=== PATIENT | female | born 1950 | race Caucasian/White ===

== ENCOUNTER 2017-03-26 21:23 | Inpatient (IN) | payer BC, OTHER ==
[~2017-03-26] VITALS: Ht 162.6 cm; Wt 54.4 kg
--- NOTE | 2017-03-26 21:48 | NUR ---
Pt BIB [facility], reports pt was behaving oddly, going into other people's rooms at [id number], and pt had diarrhea; IV 20g right hand. Pt appears extremely anxious, c/o anxiety but no other complaints. Pt A&Ox2, about baseline per paramedics. Pt denies CP, SOB, dizziness, n/v, no other complaints.
[2017-03-26] MEDS ORDERED: IV NORMAL SALINE 1000 ML BAG IV ONE (22:00)
[2017-03-26] MEDS ORDERED: LORAZEPAM 2 MG/1 ML VIAL IV ONE (22:00)
[2017-03-26] MEDS ORDERED: ACETAMINOPHEN 650 MG SUPP.RECT RC ONE (22:00)
[2017-03-26] MEDS ORDERED: ONDANSETRON 4 MG/2 ML VIAL IV ONE (22:00)
[2017-03-26] MEDS ORDERED: LORAZEPAM 2 MG/1 ML VIAL ONE (22:11)
[2017-03-26] MEDS ORDERED: ONDANSETRON 4 MG/2 ML VIAL ONE (22:29)
[2017-03-26 22:56] LABS: BASOPHILS % (AUTO) 0.1 % (0.0-2.0); EOSINOPHILS # (AUTO) 0.2 K/uL (0.0-0.7); HEMATOCRIT 30.4 % (31.2-41.9); LYMPHOCYTES # (AUTO) 0.9 K/uL (20.0-40.0); LYMPHOCYTES % (AUTO) 5.9 % (20.5-51.5); MEAN CORPUSCULAR HEMOGLOBIN 26.4 uug (24.7-32.8); MEAN CORPUSCULAR HGB CONC 33 g/dL (32.3-35.6); MEAN CORPUSCULAR VOLUME 80.5 fL (75.5-95.3); MONOCYTES # (AUTO) 1.1 K/uL (2.0-10.0); MONOCYTES % (AUTO) 7.5 % (0.0-11.0); NEUTROPHILS # (AUTO) 12.8 K/uL (1.8-8.9); NEUTROPHILS % (AUTO) 85.5 % (38.5-71.5); PLATELET COUNT (AUTO) 243 K/uL (179-408); RED BLOOD CELL COUNT(AUTO) 3.78 MIL/uL (3.63-4.92)
[2017-03-26 22:59] LABS: CREATININE 1.4 mg/dL (0.6-1.3); POTASSIUM 3.1 mmol/L (3.5-5.1)
--- NOTE | 2017-03-26 23:03 | NUR ---
Pt back from CT
[2017-03-26 23:12] LABS: BILIRUBIN,DIRECT 0.2 mg/dL (0.0-0.2); BILIRUBIN,TOTAL 0.6 mg/dL (0.2-1.0); TOTAL PROTEIN, SERUM 7.1 g/dL (6.4-8.2)
[2017-03-26] MEDS ORDERED: ACETAMINOPHEN 325 MG TABLET ONE (23:56)
[2017-03-27] MEDS ORDERED: LORAZEPAM 2 MG/1 ML VIAL IV ONE (01:15)
[2017-03-27] MEDS ORDERED: LORAZEPAM 2 MG/1 ML VIAL ONE (01:16)
[2017-03-27 01:27] LABS: *BILIRUBIN,URIN NEGATIVE (NEGATIVE); *BLOOD, URINE 2+ (NEGATIVE); *CLARITY,URINE CLOUDY (CLEAR); *COLOR,URINE YELLOW (YELLOW); *KETONES,URINE NEGATIVE (NEGATIVE); *PROTEIN,URINE 2+ (NEGATIVE); *UROBILINOGEN,URINE 0.2 E.U./dl (NORMAL); LEUKOCYTE ESTERASE ,URINE 2+ (NEGATIVE); NITRITE, URINE POSITIVE (NEGATIVE); UGLUCOSE NEGATIVE (NEGATIVE)
[2017-03-27 01:38] LABS: BACTERIA,URINE MANY /HPF (NONE SEEN); RBC,URINE 20-50 /HPF (0-3); SQUAMOUS EPITHELIAL CELL,UR FEW /HPF (NONE SEEN); WBC,URINE TNTC /HPF (0-3)
[2017-03-27] MEDS ORDERED: CEFTRIAXONE 1 G in IV DEXTROSE 5% 50 ML IV ONE (02:00)
[2017-03-27] MEDS ORDERED: LEVOFLOXACIN 750 MG/D5W 150 ML PIGGYBACK IV ONE (02:00)
[2017-03-27] MEDS ORDERED: MAGNESIUM SULFATE/D5W 100 ML IV SCH (02:00)
[2017-03-27] MEDS ORDERED: POTASSIUM BICARBONATE/CIT AC 25 MEQ TABLET.EFF PO ONE (02:00)
[2017-03-27] MEDS ORDERED: CEFTRIAXONE 1 G VIAL ONE (02:31)
[2017-03-27] MEDS ORDERED: MAGNESIUM SULFATE/D5W 100 ML ONE (02:33)
[2017-03-27] MEDS ORDERED: POTASSIUM BICARBONATE/CIT AC 25 MEQ TABLET.EFF ONE (02:34)
[2017-03-27] MEDS ORDERED: CEFTRIAXONE 1 G in IV DEXTROSE 5% 50 ML IV SCH ×2 (02:45→09:00)
[2017-03-27] MEDS ORDERED: ONDANSETRON 4 MG/2 ML VIAL IV PRN (02:45)
[2017-03-27] MEDS ORDERED: Z GUARD REMEDY PASTE 57 GM TUBE TOP PRN (02:45)
[2017-03-27] MEDS ORDERED: MAGNESIUM HYDROXIDE 30 ML LIQUID UDC PO PRN (02:45)
[2017-03-27] MEDS ORDERED: ENOXAPARIN SODIUM 40 MG/0.4 ML DISP.SYRIN SQ SCH ×3 (02:45→21:00)
--- NOTE | 2017-03-27 03:45 | NUR ---
Called report to Tiffany.
--- NOTE | 2017-03-27 04:00 | NUR ---
Received patient from ER nurse ROXY EscalanteRN. PT lying in bed awake and alert oriented to name only, easliy becomes upset and start to cry when trying to remember day, year, med or any medical history. Stated no pain when asked but takes norco for arthritis, pt discribed it as bubbles in my knees. Oriented patient x 4 and to room and call light, purpose and plan of care. Patient nod head for understanding but continue to cry. Vitals stable, no acute distress noted. Placed on tele, monitor reading 100% paced. Continue with POC.
[2017-03-27] MEDS ORDERED: LEVOFLOXACIN 750MG/D5W 150 ML IV ONE (04:04)
[2017-03-27 04:58] VITALS: BP 122/37
[2017-03-27] MEDS: IV NS 1000 ML 1,000 ML IV PRN ×2 (05:02→21:39)
[2017-03-27] MEDS ORDERED: ENOXAPARIN SODIUM 40 MG/0.4 ML DISP.SYRIN SQ ONE (05:34)
[2017-03-27] MEDS ORDERED: HYDROCODONE/APAP 5-325MG TABLET ONE (05:35)
[2017-03-27 08:00] VITALS: BP 109/32
[2017-03-27] MEDS: HYDROCODONE/APAP 5-325MG TABLET PO PRN ×2 (09:58→16:51)
[2017-03-27 11:56] VITALS: BP 99/50
[2017-03-27 16:07] VITALS: BP 100/49
--- NOTE | 2017-03-27 18:22 | NUR ---
PT OBSERVED RESTING IN BED WITH NO RESPIRATORY DISTRESS, C/O PAIN ON LEG, PT GIVEN A NORCO FOR PAIN, MEDICATION IS EFFECTIVE. PT CLAUDE OFTEN BUT IS TAUGHT TO USE DISTRACTION TO HELP WITH ANXIETY SUCH WATCHING TV. ANXIETY /10 AFTER TEACHING ANXIETY 04/13. PT IS STABLE.
[2017-03-27 20:51] VITALS: BP 104/35
[2017-03-27] MEDS: CEFTRIAXONE 1 G in IV DEXTROSE 5% 50 ML IV SCH (21:39)
[2017-03-27 22:00] VITALS: BP 104/35
--- NOTE | 2017-03-27 22:00 | NUR ---
NURSING CLINICAL NOTE: pt has the IV site on the Right arm infiltrated and swollen. IV access removed,applied heating pads and kept the arm elevated, .Josef is notified. will continue to monitor for any changes.
[2017-03-28] MEDS: HYDROCODONE/APAP 5-325MG TABLET PO PRN (03:48)
[2017-03-28 04:00] VITALS: BP 105/46
[2017-03-28 05:00] VITALS: BP 105/46
[2017-03-28 06:49] LABS: BASOPHILS % (AUTO) 0.1 % (0.0-2.0); EOSINOPHILS # (AUTO) 0.2 K/uL (0.0-0.7); EOSINOPHILS % (AUTO) 1.6 % (0.0-7.0); HEMOGLOBIN 9.3 g/dL (10.9-14.3); LYMPHOCYTES # (AUTO) 2.7 K/uL (20.0-40.0); LYMPHOCYTES % (AUTO) 21.1 % (20.5-51.5); MEAN CORPUSCULAR HEMOGLOBIN 26.3 uug (24.7-32.8); MEAN CORPUSCULAR HGB CONC 33 g/dL (32.3-35.6); MEAN CORPUSCULAR VOLUME 79.4 fL (75.5-95.3); MONOCYTES # (AUTO) 1.2 K/uL (2.0-10.0); MONOCYTES % (AUTO) 9.3 % (0.0-11.0); NEUTROPHILS # (AUTO) 8.7 K/uL (1.8-8.9); NEUTROPHILS % (AUTO) 67.9 % (38.5-71.5); PLATELET COUNT (AUTO) 225 K/uL (179-408); RED BLOOD CELL COUNT(AUTO) 3.53 MIL/uL (3.63-4.92); WHITE BLOOD COUNT (AUTO) 12.8 K/uL (3.8-11.8)
[2017-03-28 07:23] LABS: THYROID STIMULATING HORMONE 0.653 mIU/mL (0.358-3.740)
--- NOTE | 2017-03-28 08:00 | NUR ---
RECEIVED PATIENT IN BED AWAKE ALERT BUT IS SOMEWHAT FORGETFUL AND ANXIOUS REALITY ORIENTATION IS IN PROGRESS AT THIS TIME.REQUIRES MAX ASSIST FOR ALL ADL IVF IN PROGRESS ORDERED PATIENT IS CURRENTLY ON CONTACT ISOLATION PENDING THE RESULT OF C DIFF PER THE NOC RN PATIENT HAS HAD MANY EPISODES OF [facility] IN EXCESS OD 4 AND THAT [facility] ALREADY SENT THE SPECIMEN BUT WHEN I CALLED THE LAB TO VERIFY THE RESULT AND THEY STATED THAT THEY DID NOT RECEIVED ANY SPECIMEN YET.WILL ATTEMPT TO COLLECT.
[2017-03-28 09:05] LABS: CREATININE 0.9 mg/dL (0.6-1.3); MAGNESIUM 1.4 mg/dL (1.8-2.4); PHOSPHOROUS 2.4 mg/dL (2.5-4.9); POTASSIUM 3.2 mmol/L (3.5-5.1)
[2017-03-28] MEDS ORDERED: MAGNESIUM OXIDE 400 MG TABLET PO ONE (11:00)
[2017-03-28 11:27] VITALS: BP 133/52
[2017-03-28] MEDS: IV NS 1000 ML 1,000 ML IV PRN (11:31)
[2017-03-28 11:36] LABS: IRON, SERUM 8 ug/dL (50-175)
[2017-03-28] MEDS: POTASSIUM PHOSPHATE MM 7.5 MMOL in IV DEXTROSE 5% 100 ML IV SCH ×2 (12:13→15:22)
[2017-03-28] MEDS ORDERED: LORAZEPAM 2 MG/1 ML VIAL IV ONE (14:15)
--- NOTE | 2017-03-28 14:38 | NUR ---
SEEN AND EXAMINED BY DR CHACKO WITH ORDER FOR ENDOSCOPY I TOMORROW PATIENT AWARE AND WILL OBTAIN CONSCENT.
[2017-03-28 15:30] VITALS: BP 134/55
--- NOTE | 2017-03-28 17:48 | NUR ---
PATIENT IS UNABLE TO SIGN HER CONSCENT SHE IS CONFUSED AND UNABLE TO UNDERSTAND THAT SHE WILL HAVE ENDOSCOPY EVEN THOUGH DR CHACKO SPOKE WITH HER TOLD ME THAT SHE LEAVES IN A RESIDENTIAL AND HAS NO FAMILY AVAILABLE.DR BROWN NOTIFIED AND HE STATED THAT HIM AND DR CHACKO MAY HAVE IN SIGN IN THE ABSENCE OF OTHER RELATIVES.
[2017-03-28 19:34] VITALS: BP 133/52
[2017-03-28] MEDS: CEFTRIAXONE 1 G in IV DEXTROSE 5% 50 ML IV SCH (20:49)
[2017-03-28] MEDS: LORAZEPAM 1 MG TABLET PO SCH (20:49)
[2017-03-28] MEDS: Z GUARD REMEDY PASTE 57 GM TUBE TOP SCH (20:50)
[2017-03-28 21:50] VITALS: BP 133/52
[2017-03-29] MEDS: ACETAMINOPHEN 325 MG TABLET PO PRN (02:52)
--- NOTE | 2017-03-29 03:13 | NUR ---
NURSING CLINICAL NOTE: Pt has a temp of 100.1, tylenol is given and cold measures are applied, will continue to monitor.
[2017-03-29 03:15] VITALS: BP 122/62
[2017-03-29 03:32] VITALS: BP 122/62
--- NOTE | 2017-03-29 04:46 | NUR ---
NURSING CLINICAL NOTE: Pt's temp is trending down to 98.0.
[2017-03-29 06:38] LABS: BASOPHILS % (AUTO) 0.2 % (0.0-2.0); EOSINOPHILS # (AUTO) 0.2 K/uL (0.0-0.7); EOSINOPHILS % (AUTO) 2.4 % (0.0-7.0); HEMOGLOBIN 9.6 g/dL (10.9-14.3); LYMPHOCYTES # (AUTO) 1.9 K/uL (20.0-40.0); LYMPHOCYTES % (AUTO) 19.7 % (20.5-51.5); MEAN CORPUSCULAR HEMOGLOBIN 26.3 uug (24.7-32.8); MEAN CORPUSCULAR HGB CONC 33 g/dL (32.3-35.6); MEAN CORPUSCULAR VOLUME 79.4 fL (75.5-95.3); MONOCYTES # (AUTO) 0.9 K/uL (2.0-10.0); MONOCYTES % (AUTO) 9.3 % (0.0-11.0); NEUTROPHILS # (AUTO) 6.7 K/uL (1.8-8.9); NEUTROPHILS % (AUTO) 68.4 % (38.5-71.5); PLATELET COUNT (AUTO) 227 K/uL (179-408); RED BLOOD CELL COUNT(AUTO) 3.65 MIL/uL (3.63-4.92); WHITE BLOOD COUNT (AUTO) 9.8 K/uL (3.8-11.8)
[2017-03-29 07:16] LABS: BILIRUBIN,TOTAL 0.3 mg/dL (0.2-1.0); CREATININE 0.8 mg/dL (0.6-1.3); MAGNESIUM 1.5 mg/dL (1.8-2.4); PHOSPHOROUS 3.6 mg/dL (2.5-4.9)
--- NOTE | 2017-03-29 07:40 | NUR ---
DR CHACKO HERE AND I NOTIFIED HIM THAT WE DO NOT HAVE A CONSCENT FOR THE EGD DUE TO THE FACT THAT PATIENT WAS UNABLE TO COMPREHEND AND HAS NO FAMILY.SHE TOLD ME THAT SHE LIVES IN A [place] AND HAS NO ONE THERE THAT IS RELATED OR HAS INTEREST ON HER.DR CHACKO STATED TO JUST GO AHEAD AND CANCEL THE PROCEDURE SINCE IT WAS NOT AN EMERGENCY.SO PATIENT REMOVED FROM NPO STATUS AND WILL INFORM DR LOPEZ.
[2017-03-29] MEDS: IV NS 1000 ML 1,000 ML IV PRN (07:54)
--- NOTE | 2017-03-29 08:10 | NUR ---
PATIENT IS AWAKE ALERT STILL MIXED UP BUT AWARE THAT HER ENDOSCOPY TODAY HAS BEEN CANCELLED AND HE STATED OKAY.
[2017-03-29] MEDS: LORAZEPAM 1 MG TABLET PO SCH ×2 (08:28→20:46)
[2017-03-29] MEDS: Z GUARD REMEDY PASTE 57 GM TUBE TOP SCH ×2 (08:28→20:17)
[2017-03-29 11:04] VITALS: BP 143/65
[2017-03-29] MEDS: HYDROCODONE/APAP 5-325MG TABLET PO PRN ×2 (12:10→20:17)
--- NOTE | 2017-03-29 12:24 | NUR ---
STATED C/O GENERALISED PAIN MEDICATED ORDERED MADE COMFORTABLE AND WILL OBSERVE.
[2017-03-29] MEDS ORDERED: POTASSIUM CHLORIDE 20 MEQ TAB.PRT.SR PO ONE ×2 (14:30→16:00)
[2017-03-29 15:06] VITALS: BP 119/53
[2017-03-29] MEDS: MAGNESIUM SULFATE/D5W 100 ML IV SCH ×2 (15:07→16:35)
--- NOTE | 2017-03-29 15:16 | NUR ---
POTASSIUM LEVEL IS 3.0 AND MAG IS 1.5 WITH ORDER FOR REPLACEMENTS AND NOTED
[2017-03-29] MEDS: NICOTINE 14 MG/24HR PATCH TD SCH (16:35)
--- NOTE | 2017-03-29 17:39 | NUR ---
MAGNESSIUM AND POTASSIUM REPLACEMENT COMPLETED ORDERED WITH NO ADVERSE EFFECTS NOT IN DISTRESS AT THIS TIME.
[2017-03-29 20:00] VITALS: BP 148/68
--- NOTE | 2017-03-29 20:00 | NUR ---
RECEIVED PATIENT AWAKE IN BED. A/O X2. VERY ANXIOUS WHEN APPROACHED. C/O PAIN IN ABDOMEN. IVF INFUSING WELL TO RIGHT FA #22 GAUGE. VSS. NO RESP. DISTRESS NOTED. ON ISOLATION FOR POSSIBLE C-DIFF. WAITING FOR PATIENT TO HAVE BM TO SEND TO LAB. BED ALARM ON. CALL LIGHT IN REACH. ALL NEEDS ATTENDED. WILL CONTINUE TO MONITOR.
--- NOTE | 2017-03-29 20:20 | NUR ---
PATIENT GIVEN NORCO 1 TAB PO PRN FOR PAIN. WILL CONTINUE TO MONITOR.
[2017-03-29] MEDS: MEROPENEM 0.5 G in IV NORMAL SALINE 50 ML IV SCH (21:21)
--- NOTE | 2017-03-29 23:40 | NUR ---
PATIENT AWAKE IN BED. C/O ITCHING. RECEIVED ORDER FOR PATIENT TO GET BENADRYL 25MG IV PRN. GIVEN PER ABRASIVE MIXER HELPER.
[2017-03-29] MEDS: diphenhydrAMINE 50 MG/1 ML VIAL IV PRN (23:46)
[2017-03-29] MEDS ORDERED: diphenhydrAMINE 50 MG/1 ML VIAL ONE (23:55)
[2017-03-30] MEDS: IV NS 1000 ML 1,000 ML IV PRN ×2 (01:12→14:44)
[2017-03-30] MEDS: HYDROCODONE/APAP 5-325MG TABLET PO PRN ×3 (05:08→16:50)
[2017-03-30] MEDS: MEROPENEM 0.5 G in IV NORMAL SALINE 50 ML IV SCH ×3 (05:29→21:28)
[2017-03-30 05:58] VITALS: BP 146/63
--- NOTE | 2017-03-30 06:01 | NUR ---
PATIENT RESTING IN BED. DENIES PAIN AT THIS TIME. NORCO EFFECTIVE. VSS. SLEPT AT INTERVALS. BED ALARM ON. CALL LIGHT IN REACH. ALL NEEDS ATTENDED. WILL CONTINUE TO MONITOR.
[2017-03-30 07:24] LABS: CREATININE 0.9 mg/dL (0.6-1.3); MAGNESIUM 1.7 mg/dL (1.8-2.4); PHOSPHOROUS 2.9 mg/dL (2.5-4.9); POTASSIUM 3.6 mmol/L (3.5-5.1)
[2017-03-30 07:45] LABS: BASOPHILS % (AUTO) 0.3 % (0.0-2.0); EOSINOPHILS # (AUTO) 0.3 K/uL (0.0-0.7); EOSINOPHILS % (AUTO) 3.2 % (0.0-7.0); HEMATOCRIT 28.9 % (31.2-41.9); HEMOGLOBIN 9.5 g/dL (10.9-14.3); LYMPHOCYTES # (AUTO) 1.9 K/uL (20.0-40.0); LYMPHOCYTES % (AUTO) 21.1 % (20.5-51.5); MEAN CORPUSCULAR HGB CONC 33 g/dL (32.3-35.6); MEAN CORPUSCULAR VOLUME 78.9 fL (75.5-95.3); MONOCYTES # (AUTO) 0.8 K/uL (2.0-10.0); MONOCYTES % (AUTO) 9.2 % (0.0-11.0); NEUTROPHILS # (AUTO) 5.9 K/uL (1.8-8.9); NEUTROPHILS % (AUTO) 66.2 % (38.5-71.5); PLATELET COUNT (AUTO) 279 K/uL (179-408); RED BLOOD CELL COUNT(AUTO) 3.66 MIL/uL (3.63-4.92); WHITE BLOOD COUNT (AUTO) 8.9 K/uL (3.8-11.8)
--- NOTE | 2017-03-30 08:00 | NUR ---
ALERT TO SELF AWARE BUT IS CONFUSED AND DISORIENTED ALL NEEDS ANTICIPATED AND SATISFIED.CURRENTLY ON CONTACT ISOLATION AND PRECAUTION FOR POSSIBLE C DIFF BUT NO BOWEL MOVEMENT AT THIS TIME WILL CONTINUE TO OBSERVE.
[2017-03-30] MEDS: NICOTINE 14 MG/24HR PATCH TD SCH (08:57)
[2017-03-30] MEDS: LORAZEPAM 1 MG TABLET PO SCH ×2 (08:57→20:21)
[2017-03-30] MEDS: Z GUARD REMEDY PASTE 57 GM TUBE TOP SCH ×2 (09:18→20:07)
--- NOTE | 2017-03-30 10:30 | NUR ---
THE INFECTION CONTROL PRACTITIONER STATED TO DISCONTINUE ISOLATION DONE AT THIS TIME AND WILL CONTINUE TO OBSERVE.
[2017-03-30] MEDS ORDERED: MAGNESIUM OXIDE 400 MG TABLET PO ONE (11:00)
[2017-03-30 11:12] VITALS: BP 100/59
[2017-03-30] MEDS: SOD FERRIC GLUC COMPLX/SUCROSE 125 MG in IV NORMAL SALINE 100 ML IV SCH (13:46)
[2017-03-30 15:13] VITALS: BP 132/66
--- NOTE | 2017-03-30 17:30 | NUR ---
PATIENT STILL HAS NOT HAD A BOWEL MOVEMENT INFORMED HER THAT SHE CAN HAVE MILK OF MAGNESIA TONITE ORDERED BUT SHE STATED DOES NOT WANT MOM BUT INSTEAD PREFERED PRUNE JUICE GIVEN AND WILL CHECK EFFECTIVENESS.
[2017-03-30 20:00] VITALS: BP 123/70
--- NOTE | 2017-03-30 20:00 | NUR ---
PATIENT AWAKE IN BED. A/O X3. VERY EMOTIONAL AND CRYING. EMOTIONAL SUPPORT GIVEN. PATIENT IS VERY ANXIOUS, PATIENT HAS ROUTINE ATIVAN 1MG PO TO BE GIVEN. VSS. PATIENT DENIES PAIN OR DISCOMFORT. NO RESP. DISTRESS NOTED. IVF INFUSING WELL TO RIGHT FA #20 GAUGE. BED ALARM ON. CALL LIGHT IN REACH. ALL NEEDS ATTENDED. WILL CONTINUE TO MONITOR.
[2017-03-30] MEDS: ACETAMINOPHEN 325 MG TABLET PO PRN (20:21)
[2017-03-31] MEDS: diphenhydrAMINE 50 MG/1 ML VIAL IV PRN (03:26)
[2017-03-31] MEDS: MEROPENEM 0.5 G in IV NORMAL SALINE 50 ML IV SCH ×2 (05:53→13:13)
[2017-03-31] MEDS: IV NS 1000 ML 1,000 ML IV PRN (05:55)
[2017-03-31 05:59] VITALS: BP 129/52
--- NOTE | 2017-03-31 06:39 | NUR ---
PATIENT ASLEEP. SLEPT WELL. IVF INFUSING WELL. BED ALARM ON. ALL NEEDS ATTENDED. WILL CONTINUE TO MONITOR.
[2017-03-31 07:21] LABS: BASOPHILS % (AUTO) 0.5 % (0.0-2.0); EOSINOPHILS # (AUTO) 0.4 K/uL (0.0-0.7); EOSINOPHILS % (AUTO) 4.9 % (0.0-7.0); HEMATOCRIT 29.8 % (31.2-41.9); HEMOGLOBIN 9.8 g/dL (10.9-14.3); LYMPHOCYTES # (AUTO) 2.2 K/uL (20.0-40.0); LYMPHOCYTES % (AUTO) 27.4 % (20.5-51.5); MEAN CORPUSCULAR HEMOGLOBIN 26.1 uug (24.7-32.8); MEAN CORPUSCULAR HGB CONC 33 g/dL (32.3-35.6); MEAN CORPUSCULAR VOLUME 79.3 fL (75.5-95.3); MONOCYTES # (AUTO) 0.7 K/uL (2.0-10.0); MONOCYTES % (AUTO) 9.5 % (0.0-11.0); NEUTROPHILS # (AUTO) 4.5 K/uL (1.8-8.9); NEUTROPHILS % (AUTO) 57.7 % (38.5-71.5); PLATELET COUNT (AUTO) 304 K/uL (179-408); RED BLOOD CELL COUNT(AUTO) 3.75 MIL/uL (3.63-4.92); WHITE BLOOD COUNT (AUTO) 7.9 K/uL (3.8-11.8)
[2017-03-31 07:34] LABS: CREATININE 0.9 mg/dL (0.6-1.3); MAGNESIUM 1.7 mg/dL (1.8-2.4); PHOSPHOROUS 3.6 mg/dL (2.5-4.9); POTASSIUM 3.5 mmol/L (3.5-5.1)
--- NOTE | 2017-03-31 08:00 | NUR ---
AWAKE ALERT AND ORIENTED DENIES PAIN OR DISCOMFORTS AT THIS TIME.REMAIN ON IVF ORDERED WITH IV SITE INTACT AT THIS TIME MADE COMFORTABLE AND WILL CONTINUE TO OBSERVE PATIENT
[2017-03-31] MEDS: NICOTINE 14 MG/24HR PATCH TD SCH (08:33)
[2017-03-31] MEDS: CLONAZEPAM 0.5 MG TABLET PO SCH ×3 (08:33→16:26)
[2017-03-31] MEDS: Z GUARD REMEDY PASTE 57 GM TUBE TOP SCH (08:34)
[2017-03-31] MEDS ORDERED: SERTRALINE HCL 50 MG TABLET PO SCH (09:00)
[2017-03-31] MEDS: LORAZEPAM 1 MG TABLET PO SCH (09:59)
[2017-03-31] MEDS ORDERED: MAGNESIUM HYDROXIDE 30 ML LIQUID UDC PO PRN (10:00)
[2017-03-31] MEDS: HYDROCODONE/APAP 5-325MG TABLET PO PRN (10:34)
[2017-03-31 12:05] VITALS: BP 151/55
--- NOTE | 2017-03-31 13:43 | NUR ---
SPECIMEN OBTAINED FOR STOOL FOR OB AND SENT TO THE LAB ORDERED.
[2017-03-31] MEDS: SOD FERRIC GLUC COMPLX/SUCROSE 125 MG in IV NORMAL SALINE 100 ML IV SCH (13:46)
[2017-03-31 14:35] LABS: *OCCULT BLOOD STOOL NEGATIVE (NEGATIVE)
[2017-03-31 15:51] VITALS: BP 152/54
[2017-03-31] MEDS ORDERED: MAGNESIUM OXIDE 400 MG TABLET PO ONE (17:30)
[2017-03-31] MEDS ORDERED: MULT1TAB73 PO (17:47)
[2017-03-31] MEDS ORDERED: MENT71OI TOP (17:47)
[2017-03-31] MEDS ORDERED: CLON0.5T4 PO (17:47)
[2017-03-31] MEDS ORDERED: SULF1TAB48 PO (17:47)
[2017-03-31] MEDS ORDERED: MAGN400O6 PO (17:47)
[2017-03-31] MEDS ORDERED: CRAN450T9 PO (17:47)
[2017-03-31] MEDS ORDERED: CELE100C PO (17:47)
[2017-03-31] MEDS ORDERED: HYDR-3326 PO (17:47)
[2017-03-31] MEDS ORDERED: FERR325T28 PO (17:47)
[2017-03-31] MEDS ORDERED: ACID1TAB4 PO (17:47)
[2017-03-31] MEDS ORDERED: SERT50TA12 PO (17:47)
[2017-03-31] MEDS ORDERED: ACET325T53 PO (17:47)
[2017-03-31] MEDS ORDERED: NICO-671 TD (17:47)
[2017-03-31] MEDS ORDERED: FLUT1DIS28 IH (17:54)
[2017-03-31] MEDS ORDERED: ALBU0.63 IH (17:54)
--- NOTE | 2017-03-31 17:54 | NUR ---
PER THE INSPECTOR PACKER GLASS CONTAINER PATIENT WILL BE DISCHARGED TO [facility] TODAY AWAITING FOR DR LOPEZ TO [facility] ORDERS PATIENT FRIEND CARLO WAS CALLED AND NOTIFIED OF THE PLANNED DISCHARGE.
--- NOTE | 2017-03-31 18:30 | NUR ---
DISCHARGE ORDER RECEIVED CALLED [facility] AND SPOKE WITH SHADIA AND REPORT GIVEN TO HIM FOR CONTINUING CARE.
== END 2017-03-31 19:48 | DRG 871 ==
LOC: ER 21:23 → TELE 03-27 03:51 → MED 03-27 10:15
PROVIDERS: ATTEND Internal Medicine
DX: A41.9 Sepsis, unspecified organism (principal); G92 Toxic encephalopathy; N17.0 Acute kidney failure with tubular necrosis; E83.42 Hypomagnesemia; I31.3 Pericardial effusion (noninflammatory); J84.10 Pulmonary fibrosis, unspecified; N10 Acute pyelonephritis; K92.2 Gastrointestinal hemorrhage, unspecified; J98.11 Atelectasis; N30.90 Cystitis, unspecified without hematuria; F17.210 Nicotine dependence, cigarettes, uncomplicated; F03.90 Unspecified dementia, unspecified severity, without behavioral disturbance, psychotic disturbance, mood disturbance, and anxiety; I69.021 Dysphasia following nontraumatic subarachnoid hemorrhage; B96.20 Unspecified Escherichia coli [E. coli] as the cause of diseases classified elsewhere; Z16.12 Extended spectrum beta lactamase (ESBL) resistance; F32.9 Major depressive disorder, single episode, unspecified; E87.6 Hypokalemia; F41.9 Anxiety disorder, unspecified; I70.0 Atherosclerosis of aorta; M51.36 Other intervertebral disc degeneration, lumbar region; Z95.0 Presence of cardiac pacemaker; A08.4 Viral intestinal infection, unspecified; R53.1 Weakness; D50.0 Iron deficiency anemia secondary to blood loss (chronic); R73.9 Hyperglycemia, unspecified; J44.9 Chronic obstructive pulmonary disease, unspecified; F99 Mental disorder, not otherwise specified
CPT/HCPCS: 36415; 70030-TC; 71010; 82378; 83550; 83605; 83735; 84100; 84443; 85025; 85730; 87040; 87077; 87086; 89055; 93005; 97116; 97530; A4663; C1758; J0696; J1200; J1650; J1956; J2060; J2185; J2405; J2916; J3475; J3490; J7030; J7060